=== PATIENT | female | born 1985 | race Caucasian/White ===

== ENCOUNTER 2017-01-25 09:28 | Emergency (ER) | payer OTHER, MEDICAID ==
[~2017-01-25] VITALS: Ht 162.6 cm; Wt 80.5 kg
[~2017-01-25 09:28] MED LIST: BENZ100 PO; DICL50TA3 PO; ZITH250T PO
[2017-01-25 09:29] VITALS: BP 125/75; PULSE 88; RESP 18; TEMP 98.6; O2SAT 100
[2017-01-25 10:24] LABS: BACTERIA, URINE OCC /hpf; BLOOD, URINE MOD (NEG); GLUCOSE,URINE NEG (NEG); KETONE, URINE NEG (NEG); NITRITE,URINE NEG (NEG); SQUAMOUS EPITHELIAL CELL URINE <1 /hpf (0-5); TRANSITIONAL EPI CELLS, URINE <1 /hpf; URINE COLOR YELLOW (YELLW/STRAW)
[2017-01-25] MEDS ORDERED: IBUP800T23 PO (10:32)
--- NOTE | 2017-01-25 10:32 | PD ---
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 She's been seen by gynecology for this before. Her periods have always been somewhat irregular. She seen a transcripter was placed on OCPs but they didn't likely made her feel so she stopped it. Said some nausea vomiting. She also has some numbness in her legs. She is sexually active. Her last initial period was a couple months ago. History Past Medical History Medical History: Denies Significant Hx : 2 Para: 1 Social History Alcohol Use: No Tobacco Use: No (5 CIG/DAY) Allergies-Medications (Allergen,Severity, Reaction): Coded Allergies: Lortab (Verified Adverse Reaction, Intermediate, HEADACHE, 05/30/16) Reported Meds & Prescriptions Reported Meds & Active Scripts Active Diclofenac Sodium 50 Mg Tab 50 Mg PO BID Tessalon Perles (Benzonatate) 100 Mg Cap 100 Mg PO TID PRN Zithromax Z-Yoel (Azithromycin) 250 Mg Tab 250 Mg PO DIRECTED 5 Days 500 MG (2 TABLETS) PO ON DAY 1, THEN 250 MG (1 TABLET) PO ON DAYS 2 TO 5. Review of Systems Except as stated in HPI: all other systems reviewed are Neg Physical Exam Narrative GENERAL: Well-appearing 31 year-old woman, no acute distress. SKIN: Focused skin assessment warm/dry. NECK: Trachea midline. No JVD. CARDIOVASCULAR: Regular rate and rhythm. No murmur appreciated. RESPIRATORY: No accessory muscle use. Clear to auscultation. Breath sounds equal bilaterally. GASTROINTESTINAL: Abdomen soft, non-tender, nondistended. Hepatic and splenic margins not palpable. MUSCULOSKELETAL: No obvious deformities. No edema. Data Data Last Documented VS Vital Signs Date Time Temp Pulse Resp B/P Pulse Ox O2 Delivery O2 Flow Rate FiO2 01/25/17 09:29 98.6 88 18 125/75 100 Room Air Orders Gc And Chlamydia Pcr (01/25/17 10:01) Wet Prep Profile (01/25/17 10:01) Ua Includes Microscopic (01/25/17 10:01) Labs Laboratory Tests Test 01/25/17 09:55 Urine Color YELLOW Urine Turbidity HAZY Urine pH 6.0 Urine Specific [place] 1.012 Urine Protein TRACE mg/dL Urine Glucose (UA) NEG mg/dL Urine Ketones NEG mg/dL Urine Occult Blood MOD Urine Nitrite NEG Urine Bilirubin NEG Urine Urobilinogen LESS THAN 2.0 MG/DL Urine Leukocyte Esterase LARGE Urine RBC /hpf Urine WBC 139 /hpf Urine Squamous Epithelial <1 /hpf Cells Urine Transitional Epithelial <1 /hpf Cells Urine Bacteria OCC /hpf MDM Medical Decision Making Medical Screen Exam Complete: Yes Emergency Medical Condition: Yes Differential Diagnosis Dysmenorrhea, , cervicitis, other Narrative Course Medical decision making INITIAL: This a 31 year-old woman presents to the emergency department complaining of painful menstrual cycles. She is a history of the same. States feels similar set trouble before. Symptoms started with her menstrual bleeding. She looks well. Recommend NSAIDs, outpatient follow-up. We'll check test. Diagnosis Primary Impression: Dysmenorrhea Additional Instructions: Take ibuprofen as prescribed. Follow up with her transcripter. Return to the emergency department for any new or worsening symptoms. Med/Other Pt SpecificInfo: Prescription(s) given Scripts Ibuprofen 800 Mg [id number] Mg PO Q8H PRN (Pain/Inflammation) #21 TAB Ref 0 Prov:Benedicto Mueller MD 01/25/17 Disposition: 01 DISCHARGE HOME Condition: Stable Benedicto Mueller MD January 25, 2017 10:32
[2017-01-25] MEDS ORDERED: CEPH-460 PO (11:29)
--- NOTE | 2017-01-25 11:29 | PD ---
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 She had a hysterectomy in December 2012. She still has her cervix. This morning she noticed some vaginal discomfort and the bright red blood per vagina. Just a little bit dysuria. She sexually active with both men and women, most recently about 45 days ago. She has not had any similar symptoms. She's not had any abnormal vaginal discharge. No odor. No other complaints. History Past Medical History Medical History: Denies Significant Hx : 2 Para: 1 Social History Alcohol Use: No Tobacco Use: No (5 CIG/DAY) Allergies-Medications (Allergen,Severity, Reaction): Coded Allergies: Lortab (Verified Adverse Reaction, Intermediate, HEADACHE, 05/30/16) Reported Meds & Prescriptions Reported Meds & Active Scripts Active Ibuprofen 800 Mg Tab 800 Mg PO Q8H PRN Diclofenac Sodium Dr (Diclofenac Sodium) 50 Mg Tab 50 Mg PO BID Tessalon Perles (Benzonatate) 100 Mg Cap 100 Mg PO TID PRN Zithromax Z-Yoel (Azithromycin) 250 Mg Tab 250 Mg PO DIRECTED 5 Days 500 MG (2 TABLETS) PO ON DAY 1, THEN 250 MG (1 TABLET) PO ON DAYS 2 TO 5. Review of Systems Except as stated in HPI: all other systems reviewed are Neg Physical Exam Narrative GENERAL: Well-appearing 31 year-old woman, no acute distress. SKIN: Focused skin assessment warm/dry. CARDIOVASCULAR: Regular rate and rhythm. No murmur appreciated. RESPIRATORY: No accessory muscle use. Clear to auscultation. Breath sounds equal bilaterally. GASTROINTESTINAL: Abdomen soft, non-tender, nondistended. Hepatic and splenic margins not palpable. MUSCULOSKELETAL: No obvious deformities. PELVIC: Normal external female genitalia. Speculum exam reveals no evidence of blood or discharge. Examination of the cervix reveals several small yellow lesions, somewhat nodular, on the inferior and right side of the cervix. There is no significant cervical inflammation or evidence of cervicitis. There is no bleeding. Data Data Last Documented VS Vital Signs Date Time Temp Pulse Resp B/P Pulse Ox O2 Delivery O2 Flow Rate FiO2 01/25/17 09:29 98.6 88 18 125/75 100 Room Air Orders Gc And Chlamydia Pcr (01/25/17 10:01) Wet Prep Profile (01/25/17 10:01) Ua Includes Microscopic (01/25/17 10:01) Labs Laboratory Tests Test 01/25/17 01/25/17 09:55 10:23 Urine Color YELLOW Urine Turbidity HAZY Urine pH 6.0 Urine Specific [place] 1.012 Urine Protein TRACE mg/dL Urine Glucose (UA) NEG mg/dL Urine Ketones NEG mg/dL Urine Occult Blood MOD Urine Nitrite NEG Urine Bilirubin NEG Urine Urobilinogen LESS THAN 2.0 MG/DL Urine Leukocyte Esterase LARGE Urine RBC /hpf Urine WBC 139 /hpf Urine Squamous Epithelial <1 /hpf Cells Urine Transitional Epithelial <1 /hpf Cells Urine Bacteria OCC /hpf Clue Cells (Wet Prep) NONE SEEN Vaginal Trichomonas (Wet Prep) NONE SEEN Vaginal Yeast (Wet Prep) NONE SEEN MDM Medical Decision Making Medical Screen Exam Complete: Yes Emergency Medical Condition: Yes Interpretation(s) UA with hematuria and pyuria. Wet prep negative Differential Diagnosis Hemorrhagic UTI, cervicitis, malignancy, rectal bleeding, other Narrative Course Medical decision-making new This a 31 year-old woman presents to the emergency department with bright red blood per vagina, and the setting of being status post hysterectomy. She has some nodules on her cervix that are possibly malignant, possibly benign. It's unclear. 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 She has share of cost Medicaid. I told her like her to be seen in the next one to 2 weeks for repeat evaluation of these. 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 She hasn't blood in her urine, and I don't really seen any blood in the vagina. This raises possibility of hemorrhagic UTI is the source of her bleeding. We'll treat her for hemorrhagic UTI, outpatient follow-up with gynecology as discussed, return for any worsening symptoms. Diagnosis Primary Impression: Vaginal bleeding Additional Impression: UTI (urinary tract infection) Patient Instructions: General Instructions Departure Forms: Tests/Procedures Additional Instructions: Take antibiotics as prescribed. Follow up with her trash collector supervisor as discussed. Return to the emergency department for any new or worsening symptoms. Med/Other Pt SpecificInfo: Prescription(s) given Scripts Cephalexin (Keflex)500 Mg [id number] Mg PO Q8H #30 CAP Ref 0 Prov:Benedicto Mueller MD 01/25/17 Disposition: 01 DISCHARGE HOME Condition: Stable Benedicto Mueller MD January 25, 2017 11:29
[2017-01-25 13:30] LABS: CHLAMYDIA PCR NOT DETECTED (NOT DETECT); NEISSERIA PCR NOT DETECTED (NOT DETECT)
== END 2017-01-25 11:43 | disposition home or self-care (01) ==
LOC: NEPD 09:28
DX: N93.9 Abnormal uterine and vaginal bleeding, unspecified (principal); N39.0 Urinary tract infection, site not specified; Z90.711 Acquired absence of uterus with remaining cervical stump
CPT/HCPCS: 81001; 87210; 87491; 87591; 99283

== ENCOUNTER 2017-01-29 22:27 | Emergency (ER) | payer MEDICAID, OTHER ==
[~2017-01-29] VITALS: Ht 170.2 cm; Wt 65.0 kg
[~2017-01-29 22:27] MED LIST changes: +CEPH-460 PO
[2017-01-29 22:29] VITALS: BP 135/88; PULSE 120; RESP 20; TEMP 98; O2SAT 98
[2017-01-30 00:09] VITALS: BP 121/72; PULSE 83; RESP 18; O2SAT 100
[2017-01-30] MEDS ORDERED: CEPH500T PO (00:09)
--- NOTE | 2017-01-30 01:24 | PD ---
HPI Chief Complaint: Psychiatric Symptoms Time Seen by Provider: 00:12 Travel History International Travel<30 days: No Contact w/Intl Traveler<30days: No Traveled to known affect area: No History of Present Illness HPI The patient is a 31 year old female who presents to the [facility] emergency department with a history of suicidal ideations that she reports began today after her fianc found out about her boyfriend. The patient reports that both of these men are addicts. She reports that now they will both likely use drugs and she feels responsible. She reports that she felt so depressed that she was thinking about jumping off of a bridge. She reports that she then called her friend who brought her to the emergency department for further stabilization. She denies having any prior history of depression. She denies having any prior history of suicide attempt. A review of systems, the patient denies any recent fevers, cough, congestion, neck pain, chest pain, shortness of breath, abdominal pain, vomiting, diarrhea, urinary symptoms, or neurologic symptoms. PFSH Past Medical History Narrative Medical The patient's past medical history is significant for gestational diabetes, acid reflux. On antibiotic currently for a bladder infection. Asthma: Yes Diabetes: Yes (GESTATIONAL DIABETES 4 YEARS AGO---RESOLVED) Patient Takes Glucophage: No Diminished Hearing: No GERD: Yes Reproductive: Yes (ENDOMETREOSIS) Immunizations Current: Yes Tetanus Vaccination: Unknown Influenza Vaccination: No ?: Not : 2 Para: 1 Miscarriage: 1 : 1 Ovarian Cysts: Yes (HEMORRAGIC CYST RT OVARY ) Past Surgical History Narrative Surgical The patient's past surgical history is significant for hysterectomy, laparoscopy for endometriosis, . Abdominal Surgery: Yes (LAPROSCOPY) Section: Yes (JANUARY 2004) Genitourinary Surgery: Yes (C SECT) Gynecologic Surgery: Yes (C SECTION) Hysterectomy: Yes Social History Alcohol Use: No Tobacco Use: Yes (5 CIG/DAY) Substance Use: No Allergies-Medications (Allergen,Severity, Reaction): Coded Allergies: Lortab (Verified Adverse Reaction, Intermediate, HEADACHE, 01/30/17) Reported Meds & Prescriptions Reported Meds & Active Scripts Active Reported Cephalexin 500 Mg Tab 500 Mg PO Q8H Review of Systems ROS Limitations: Clinical Condition Except as stated in HPI: all other systems reviewed are Neg General / Constitutional: No: Fever Eyes: No: Visual changes HENT: No: Headaches Cardiovascular: No: Chest Pain or Discomfort Respiratory: No: Shortness of Breath Gastrointestinal: No: Abdominal Pain Genitourinary: No: Dysuria Musculoskeletal: No: Pain Skin: No Rash Neurologic: No: Weakness, Focal Abnormalities, Change in Mentation, Sensory Disturbance Psychiatric: Positive: Depression, Suicidal Ideations, Mood Disorder Endocrine: No: Polydipsia Hematologic/Lymphatic: No: Easy Bruising Physical Exam Narrative General: The patient is a well-developed well-nourished female in no acute distress. Head and Neck exam: Head is normocephalic atraumatic. Eyes: EOMI, pupils are equal round and reactive to light. Nose: Midline septum with pink mucous membranes Mouth: Dentition unremarkable. Moist mucus membranes. Posterior oropharynx is not erythematous. No tonsillar hypertrophy. Uvula midline. Airway patent. Neck: No palpable lymphadenopathy. No nuchal rigidity. No thyromegaly. Cardiovascular: Regular rate and rhythm without murmurs, gallops, or rubs. No pulse deficit to the extremities. Lungs: Clear to auscultation bilaterally. No wheezes, rhonchi, or rales. Abdomen: Soft, without tenderness to palpation in all 4 quadrants of the abdomen. No guarding, rebound, or rigidity. Normal bowel sounds are audible. No tenderness on palpation of McBurney's point. Extremities: No clubbing, cyanosis, or edema. No calf tenderness on palpation. Back: No costovertebral angle tenderness to palpation. Neurologic Exam: Grossly nonfocal. Skin Exam: No rash noted. Intact skin that is warm and dry. Data Data Last Documented VS Vital Signs Date Time Temp Pulse Resp B/P Pulse Ox O2 Delivery O2 Flow Rate FiO2 01/30/17 02:21 100 Room Air 01/30/17 00:09 83 18 121/72 01/29/17 22:29 98.0 Orders Psych Screen (01/30/17 00:14) Comprehensive Metabolic Panel (01/30/17 00:14) Alcohol (Ethanol) (01/30/17 00:14) Thyroid Stimulating Hormone (01/30/17 00:14) Iv Access Insert/Monitor (01/30/17 00:14) Ecg Monitoring (01/30/17 00:14) Oximetry (01/30/17 00:14) Alprazolam (Xanax) (01/30/17 01:30) Complete Blood Count With Diff (01/30/17 02:26) Drug Screen, Random Urine (01/30/17 02:26) Alcohol (Ethanol) (01/30/17 00:30) Comprehensive Metabolic Panel (01/30/17 00:30) Labs Laboratory Tests Test 01/30/17 00:30 White Blood Count 8.9 TH/MM3 Red Blood Count 4.79 MIL/MM3 Hemoglobin 14.7 GM/DL Hematocrit 41.2 % Mean Corpuscular Volume 86.0 FL Mean Corpuscular Hemoglobin 30.6 PG Mean Corpuscular Hemoglobin 35.6 % Concent Red Cell Distribution Width 12.4 % Platelet Count 217 TH/MM3 Mean Platelet Volume 8.7 FL Neutrophils (%) (Auto) 58.2 % Lymphocytes (%) (Auto) 32.1 % Monocytes (%) (Auto) 5.7 % Eosinophils (%) (Auto) 3.4 % Basophils (%) (Auto) 0.6 % Neutrophils # (Auto) 5.2 TH/MM3 Lymphocytes # (Auto) 2.9 TH/MM3 Monocytes # (Auto) 0.5 TH/MM3 Eosinophils # (Auto) 0.3 TH/MM3 Basophils # (Auto) 0.1 TH/MM3 CBC Comment DIFF FINAL Differential Comment Sodium Level 143 MEQ/L Potassium Level 3.5 MEQ/L Chloride Level 109 MEQ/L Carbon Dioxide Level 19.2 MEQ/L Anion Gap 15 MEQ/L Blood Urea Nitrogen 11 MG/DL Creatinine 0.83 MG/DL Estimat Glomerular Filtration 81 ML/MIN Rate Random Glucose 96 MG/DL Calcium Level 9.0 MG/DL Total Bilirubin 0.4 MG/DL Aspartate Amino Transf 20 U/L (AST/SGOT) Alanine Aminotransferase 26 U/L (ALT/SGPT) Alkaline Phosphatase 83 U/L Total Protein 7.4 GM/DL Albumin 4.2 GM/DL Thyroid Stimulating Hormone 2.610 uIU/ML 3rd Gen Urine Opiates Screen NEG Urine Barbiturates Screen NEG Urine Amphetamines Screen NEG Urine Benzodiazepines Screen NEG Urine Cocaine Screen NEG Urine Cannabinoids Screen POS Ethyl Alcohol Level LESS THAN 3 MG/DL MDM Medical Decision Making Medical Screen Exam Complete: Yes Emergency Medical Condition: Yes Medical Record Reviewed: Yes Differential Diagnosis Adjustment disorder with depressed mood and suicidal ideations, versus depression, versus substance induced mood disorder Narrative Course During the course of the patients emergency department visit, the patients history, examination, and differential diagnosis were reviewed with the patient. The patient had IV access obtained and blood work sent for analysis. The patient's was on a rn cardiac with oximetry and blood pressure monitoring. The patient was tearful and reportedly anxious on examination. A psychiatric screen was ordered. The patient was initially provided Xanax 0.25 mg by mouth 1. The patients laboratory studies were reviewed and remarkable for a TSH that was within normal limits. CBC is within normal limits. CMP is remarkable for a chloride of 109, CO2 19.2, GFR of 81. Urine drug screen was positive for cannabinoids, alcohol level less than 3. The patient has been medically cleared for evaluation by the psychiatric screener for depression with suicidal ideations. Diagnosis Primary Impression: Suicidal ideations Gypsy Cartagena MD January 30, 2017 01:24
[2017-01-30] MEDS ORDERED: ALPRAZolam 0.25 MG TAB PO ONE (01:30)
[2017-01-30 02:21] VITALS: O2SAT 100
[2017-01-30 02:37] LABS: AUTOMATED NEUTROPHIL # 5.2 TH/MM3 (1.8-7.7); BASOPHIL # 0.1 TH/MM3 (0-0.2); BASOPHIL % 0.6 % (0.0-2.0); EOSINOPHIL # 0.3 TH/MM3 (0-0.4); EOSINOPHIL % 3.4 % (0.0-4.0); HEMATOCRIT 41.2 % (35.0-46.0); HEMO FLAGS DIFF FINAL; LYMPH % 32.1 % (9.0-44.0); LYMPHOCYTE # 2.9 TH/MM3 (1.0-4.8); MEAN CORPUSCULAR HEMOGLOBIN 30.6 PG (27.0-34.0); MEAN CORPUSCULAR HGB CONC 35.6 % (32.0-36.0); MONO % 5.7 % (0.0-8.0); NEUT % 58.2 % (16.0-70.0); PLATELET COUNT 217 TH/MM3 (150-450); RED BLOOD COUNT 4.79 MIL/MM3 (4.00-5.30); RED CELL DISTRIBUTION WIDTH 12.4 % (11.6-17.2); WHITE BLOOD COUNT 8.9 TH/MM3 (4.0-11.0)
[2017-01-30 02:41] LABS: AST (GOT) 20 U/L (15-37); BICARBONATE 19.2 MEQ/L (21.0-32.0); BLOOD UREA NITROGEN 11 MG/DL (7-18); GLOMERULAR FILTRATION RATE 81 ML/MIN (>89)
[2017-01-30 02:45] LABS: AMPHETAMINE, URINE NEG (NEG); BARBITURATES, URINE NEG (NEG); COCAINE, URINE NEG (NEG)
[2017-01-30 02:55] LABS: ALT (GPT) 26 U/L (10-53); ANION GAP 15 MEQ/L (5-15); CHLORIDE 109 MEQ/L (98-107); POTASSIUM 3.5 MEQ/L (3.5-5.1); SODIUM (NA) 143 MEQ/L (136-145)
[2017-01-30 02:58] LABS: ALKALINE PHOSPHATASE 83 U/L (45-117); TOTAL BILIRUBIN ADULT 0.4 MG/DL (0.2-1.0)
[2017-01-30 04:34] VITALS: BP 105/62; PULSE 66; RESP 18; O2SAT 99
[2017-01-30 06:27] VITALS: BP 102/60; PULSE 54; RESP 18; O2SAT 99
[2017-01-30 10:00] VITALS: BP 102/62; PULSE 77
--- NOTE | 2017-01-30 12:35 | PD ---
History of Present Illness Chief Complaint: Psychiatric Symptoms Time Seen by Provider: 12:15 Travel History International Travel<30 Days: No Contact w/Intl Traveler<30days: No Known affected area: No Legal Status Legal Status: Voluntary History of Present Illness: History of Present Illness HPI The patient is a 31 year old female with no previous psychiatric history who presents to the [facility] emergency department on a voluntary status for psychiatric evaluation. EMR is reviewed with no previous contact with [facility] [place]. Current toxicology is positive for cannabinoids. Patient was monitored in J pod and she presented no behavioral concerns and no suicidality. Patient is seen in J pod. Awake, alert and oriented. Calm and engaging. She states that yesterday she felt overwhelmed and " I overreacted". She reports that she told her fiancee who is in residential that she has been dating another man. According to the patient the fiancee threatened to hang himself and her current boyfriend " is devastated". The patient has no other psychiatric symptomatology. No suicidal or homicidal ideation, intent or plan. No psychosis and no ernst. PFSH Past Medical History Asthma: Yes Diabetes: Yes (GESTATIONAL DIABETES 4 YEARS AGO---RESOLVED) Patient Takes Glucophage: No Diminished Hearing: No GERD: Yes Reproductive: Yes (ENDOMETREOSIS) Immunizations Current: Yes Tetanus Vaccination: Unknown Influenza Vaccination: No ?: Not : 2 Para: 1 Miscarriage: 1 : 1 Ovarian Cysts: Yes (HEMORRAGIC CYST RT OVARY ) Past Surgical History Abdominal Surgery: Yes (LAPROSCOPY) Section: Yes (JANUARY 2004) Genitourinary Surgery: Yes (C SECT) Gynecologic Surgery: Yes (C SECTION) Hysterectomy: Yes Psychiatric History Psychiatric History Hx Psychiatric Treatment: None History of Inpatient Treatment: No Guns or firearms in home: No Social History Single female. 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 Lives with her father and her 13 year old son. Hx Alcohol Use: No Hx Tobacco Use: Yes (5 CIG/DAY) Hx Substance Use: Yes Substance Use Type: Marijuana Hx of Substance Use Treatment: No Family Psychiatric History Negative Allergies-Medications (Allergen,Severity, Reaction): Coded Allergies: Lortab (Verified Adverse Reaction, Intermediate, HEADACHE, 01/30/17) Reported Meds & Prescriptions Reported Meds & Active Scripts Active Reported Cephalexin 500 Mg Tab 500 Mg PO Q8H Review of Systems Except as stated in HPI: all other systems reviewed are Neg Exam Alert: Yes Tea: Person (ox4) Mood: Calm Affect: Appropriate Speech: Clear, Logical Eye Contact: Normal Memory Intact: Comment (No impairmetn) Hallucinations: Other (Negative) Delusions: No Suicidal: Ideation (neagtive) Homicidal: Ideation (negative) Insight/Judgement Poor. Not impaired. MDM Medical Decision Making Medical Record Reviewed: Yes Assessment/Plan 31 year old female under a voluntary status. She reported feeling overwhelmed in context of relationship issues and some choices she made. At this time the patient is not suicidal or homicidal and does nto meet criteria for inpatient treatment. She is provided psychoeducation and is encouraged to seek outpatient treatment such as counseling. Orders Psych Screen (01/30/17 00:14) Comprehensive Metabolic Panel (01/30/17 00:14) Alcohol (Ethanol) (01/30/17 00:14) Thyroid Stimulating Hormone (01/30/17 00:14) Iv Access Insert/Monitor (01/30/17 00:14) Ecg Monitoring (01/30/17 00:14) Oximetry (01/30/17 00:14) Alprazolam (Xanax) (01/30/17 01:30) Complete Blood Count With Diff (01/30/17 02:26) Drug Screen, Random Urine (01/30/17 02:26) Alcohol (Ethanol) (01/30/17 00:30) Comprehensive Metabolic Panel (01/30/17 00:30) Diet Regular Basic (01/30/17 Breakfast) Diet Regular Basic (01/30/17 Lunch) Results Vital Signs Date Time Temp Pulse Resp B/P Pulse Ox O2 Delivery O2 Flow Rate FiO2 01/30/17 10:00 77 102/62 Room Air 01/30/17 06:27 54 18 102/60 99 01/30/17 04:34 66 18 105/62 99 Room Air 01/30/17 02:21 100 Room Air 01/30/17 00:09 83 18 121/72 100 Room Air 01/29/17 22:29 98.0 120 20 135/88 98 Room Air Laboratory Tests Test 01/30/17 00:30 White Blood Count 8.9 Red Blood Count 4.79 Hemoglobin 14.7 Hematocrit 41.2 Mean Corpuscular Volume 86.0 Mean Corpuscular Hemoglobin 30.6 Mean Corpuscular Hemoglobin 35.6 Concent Red Cell Distribution Width 12.4 Platelet Count 217 Mean Platelet Volume 8.7 Neutrophils (%) (Auto) 58.2 Lymphocytes (%) (Auto) 32.1 Monocytes (%) (Auto) 5.7 Eosinophils (%) (Auto) 3.4 Basophils (%) (Auto) 0.6 Neutrophils # (Auto) 5.2 Lymphocytes # (Auto) 2.9 Monocytes # (Auto) 0.5 Eosinophils # (Auto) 0.3 Basophils # (Auto) 0.1 CBC Comment DIFF FINAL Differential Comment Sodium Level 143 Potassium Level 3.5 Chloride Level 109 Carbon Dioxide Level 19.2 Anion Gap 15 Blood Urea Nitrogen 11 Creatinine 0.83 Estimat Glomerular Filtration 81 Rate Random Glucose 96 Calcium Level 9.0 Total Bilirubin 0.4 Aspartate Amino Transf 20 (AST/SGOT) Alanine Aminotransferase 26 (ALT/SGPT) Alkaline Phosphatase 83 Total Protein 7.4 Albumin 4.2 Thyroid Stimulating Hormone 2.610 3rd Gen Urine Opiates Screen NEG Urine Barbiturates Screen NEG Urine Amphetamines Screen NEG Urine Benzodiazepines Screen NEG Urine Cocaine Screen NEG Urine Cannabinoids Screen POS Ethyl Alcohol Level LESS THAN 3 Diagnosis Primary Impression: Adjustment disorder Ruled Out: Suicidal ideations Psychiatrically Cleared: Yes Med/ Other Pt Specific Info: No Meds Exist/No RX given Disposition: 01 DISCHARGE HOME Condition: Stable Problem Qualifiers Primary Impression: Adjustment disorder Qualified Code: F43.21 - Adjustment disorder with depressed mood Lydia Rodriguez [facility] January 30, 2017 12:34
== END 2017-01-30 13:20 | disposition home or self-care (01) ==
LOC: NEPE 22:27 → NEPJ 01-30 13:20
DX: F32.9 Major depressive disorder, single episode, unspecified (principal); R45.851 Suicidal ideations; F43.21 Adjustment disorder with depressed mood; Z72.0 Tobacco use; Z87.09 Personal history of other diseases of the respiratory system; Z87.19 Personal history of other diseases of the digestive system; Z87.42 Personal history of other diseases of the female genital tract
CPT/HCPCS: 80053; 80307; 84443; 85025; 99284